=== PATIENT | male | born 1960 | race Caucasian/White ===

== ENCOUNTER 2017-07-22 22:44 | Emergency (ER) | payer OTHER ==
[~2017-07-22] VITALS: Ht 167.6 cm; Wt 72.6 kg
[~2017-07-22 22:44] MED LIST: ATOR40TA40; METF500T4; [UNRECOGNIZED DRUG - CODE]
--- NOTE | 2017-07-22 22:50 | NUR ---
PT TOM ALS. TAKEN TO BED 5
[2017-07-22 22:57] VITALS: BP 153/84
--- NOTE | 2017-07-22 22:58 | NUR ---
Dr. Garcia evaluating patient at bedside.
--- NOTE | 2017-07-22 23:15 | NUR ---
PT TAKEN TO XRAY
--- NOTE | 2017-07-22 23:28 | NUR ---
PT RETURN FROM XRAY
[2017-07-22] MEDS ORDERED: KETOROLAC 60 MG/2 ML VIAL IM ONE (23:55)
--- NOTE | 2017-07-23 02:00 | NUR ---
[facility] ACCEPTED PT. ETA FOR [facility] 60-90MIN. PT AND INFORMED.
--- NOTE | 2017-07-23 02:41 | NUR ---
Patient to be transferred to [facility]. Is being transferred due to HIGHER LEVEL OF CARE. Receiving facility has accepting physician and available space. ER physician has signed transfer form. Patient or responsible democrat has agreed to transfer and signed form. Patient belongings inventoried and will be sent with patient. Copy of nursing notes, lab reports, EKG, Physicians Orders and X-rays to be sent with patient. Report called to YONG STEVENSON at receiving facility. [facility] ambulance service has been called for transfer.
[2017-07-23 02:42] VITALS: BP 141/80
== END 2017-07-23 02:41 | disposition short-term general hospital (02) ==
LOC: MED 22:44
DX: S42.202A Unspecified fracture of upper end of left humerus, initial encounter for closed fracture (principal); S42.332A Displaced oblique fracture of shaft of humerus, left arm, initial encounter for closed fracture; S42.402A Unspecified fracture of lower end of left humerus, initial encounter for closed fracture; E11.9 Type 2 diabetes mellitus without complications; I10 Essential (primary) hypertension; W18.39XA Other fall on same level, initial encounter; Y93.89 Activity, other specified; Y92.89 Other specified places as the place of occurrence of the external cause; Y99.8 Other external cause status
CPT/HCPCS: 29105; 73060; 73080; 96372; 99285; J1885